=== PATIENT | male | born 1940 | race Caucasian/White ===

== ENCOUNTER 2023-12-09 09:12 | Emergency (ER) | payer OTHER, BC ==
[~2023-12-09] VITALS: Ht 165.1 cm; Wt 81.6 kg
[2023-12-09] MEDS ORDERED: LIPITOR40 M1 PO (09:17)
[2023-12-09] MEDS ORDERED: GRALISE600 MG PO (09:18)
[2023-12-09] MEDS ORDERED: LASIX20 MG PO (09:18)
[2023-12-09] MEDS ORDERED: FARXIGA5 MG PO (09:18)
[2023-12-09] MEDS ORDERED: KEPPRA XR500 MG PO (09:19)
[2023-12-09] MEDS ORDERED: COZAAR25 MG PO (09:19)
[2023-12-09] MEDS ORDERED: PLAVIX75 MG PO (09:19)
[2023-12-09] MEDS ORDERED: CLINDAMYCIN PHOSPHATE 150 MG/ML (600mg) IV STA (09:59)
[2023-12-09 10:59] LABS: HEMATOCRIT 42.7 % (39.0-48.0); HEMOGLOBIN 14.1 g/dL (13-16.00); MEAN CELL VOLUME 101.1 fL (80.0-100.00); MEAN CORPUSCULAR HEMOGLOBIN 33.5 pg (27.00-32.0); MEAN CORPUSCULAR HGB CONC 33.2 g/dl (32.0-36.0); PLATELET COUNT 130 K/uL (150-450); RED BLOOD COUNT 4.22 M/uL (4.00-6.00); RED CELL DISTRIBUTION WIDTH 14.5 % (11.5-14.5)
[2023-12-09 11:28] LABS: CALCIUM 9.1 mg/dL (8.5-10.1); CREATININE SERUM 1.12 mg/dL (0.70-1.30); GFR 62.31; POTASSIUM 3.47 mEq/L (3.5-5.1)
[2023-12-09] MEDS ORDERED: CLEOCIN HCL300 MG PO (13:04)
[2023-12-09] MEDS ORDERED: BACTRIM DS TAB1 EACH PO (13:06)
== END 2023-12-09 13:12 | disposition home or self-care (01) ==
LOC: ER 09:12
PROVIDERS: Emergency Medicine
DX: L03.116 Cellulitis of left lower limb (principal); I73.89 Other specified peripheral vascular diseases; E78.00 Pure hypercholesterolemia, unspecified; I49.8 Other specified cardiac arrhythmias; J44.9 Chronic obstructive pulmonary disease, unspecified; M19.90 Unspecified osteoarthritis, unspecified site; I25.2 Old myocardial infarction; Z98.890 Other specified postprocedural states
CPT/HCPCS: 36415; 93926; 93971; 96365; 99284; J3490